=== PATIENT | female | born 1975 | race Caucasian/White ===

== ENCOUNTER 2021-12-31 10:56 | Emergency (ER) | payer SELFPAY ==
[2021-12-31 10:57] VITALS: BP 135/67; PULSE 80; RESP 16; TEMP 36.2; O2SAT 96; BMI 22.8
[2021-12-31 11:06] VITALS: BP 135/67; PULSE 80; RESP 16; TEMP 36.2; O2SAT 96
--- NOTE | 2021-12-31 11:15 | EDS_ITS ---
HPI HPI - Female History of Present Illness Chief Complaint: Female C/O Informant: patient Narrative Narrative: 46-year-old female presenting to the emergency department for vaginal discharge. Patient states that she is from [place]. Prior to coming to [place] to visit family she saw her doctor and was diagnosed with bacterial vaginosis. She was started on 7 days of metronidazole. She states that there is still a discharge. She describes it as white and thick. She states that sometimes it smells sweet and sometimes it smells fishy. She states that they also checked her for gonorrhea and chlamydia and states that she called the office to make sure that those were negative but they stated that they couldn't pull her chart but that they would've called her if it was positive. She denies any fevers. She has had prior hysterectomy. [facility] Medical History Harding esophagus Iron deficiency Mitral valve prolapse Home Medications clindamycin HCl [Cleocin HCl] 300 mg PO BID 7 Days #14 capsule 12/31/21 [Rx Last Taken Unknown] fluconazole [Diflucan] 150 mg PO Q3D #2 tab 12/31/21 [Rx Last Taken Unknown] pantoprazole 40 mg PO DAILY 12/31/21 [History Last Taken Unknown] Allergy/AdvReac Type Severity Reaction Status Date / Time acetaminophen [From Percocet] Allergy Rash Verified 12/31/21 11:00 oxycodone [From Percocet] Allergy Rash Verified 12/31/21 11:00 Surgical History History of hysterectomy Social History Smoking Status: Current every day smoker tobacco type: cigarettes ROS ROS ED Constitutional Constitutional ED: Denies chills, fever(s) or weight loss Eyes Eyes: Denies change in vision or diplopia ENT ENT ED: Denies ear pain, rhinorrhea or sore throat Cardiovascular Cardiovascular: Denies chest pain, orthopnea, palpitations or racing heartbeat Respiratory/Chest Respiratory/Chest: Denies cough, dyspnea or orthopnea Gastrointestinal Gastrointestinal: Denies abdominal pain, diarrhea, nausea or vomiting Genitourinary Genitourinary ED: Reports other Details: Vaginal discharge ; Denies dysuria, hematuria or urinary frequency Musculoskeletal Musculoskeletal: Denies arthralgias or myalgias Integumentary Denies abscess or rash Neurologic Neurologic: Denies headache(s) or weakness Psychiatric Psychiatric: Denies anxiety, depression, suicidal ideation or suicidal thoughts Endocrine Endocrinology: Denies polydipsia, polyphagia or polyuria Allergic/Immunologic Allergic/Immunologic ED: Denies mouth swelling, tongue swelling or urticaria EXAM Physical Exam Const Vital Signs: 12/31/21 10:57 12/31/21 11:06 Temperature 97.2 F L 97.2 F L Temperature Source Temporal Temporal Pulse Rate 80 80 Respiratory Rate 16 16 Blood Pressure 135/67 H 135/67 H Blood Pressure Mean 89 89 Pulse Ox 96 96 Oxygen Delivery Method Room Air Room Air Positive well nourished and well developed General Appearance ED: well developed HEENT Reports normocephalic, head/scalp atraumatic, TM's clear and moist mucous membranes Negative for trauma Tympanic Membrane ED: Yes TM's clear Eyes PERRL and EOMs intact bilaterally Neck no lymphadenopathy, supple and no JVD Resp normal respiratory effort and clear to auscultation bilaterally Cardio regular rate, regular rhythm and no murmurs GI normal to inspection, nondistended, normoactive bowel sounds and non-tender Palpation: soft Narrative: External exam appears normal. Speculum exam reveals white frothy discharge. No lesions or blood noted. Back/Spine no CVA tenderness and normal ROM Extremity normal to inspection General Extremety ED: Negative for edema General Extremity: Negative for edema Neuro oriented x3 and CN's II-XII intact bilaterally Sensorium / Orientation: alert Motor Exam: strength 5/5 throughout Psych mental status grossly normal Mood & Affect: Negative for depressed or tearful Skin no rashes or lesions noted and no wounds MDM MDM MDM Narrative Medical decision making narrative: I will start the patient on a 7-day clindamycin course as she just finished a 7-day metronidazole course. I will also write for Diflucan she is worried about yeast infection. Advised the patient to follow-up with gynecology when she returns home Discharge Plan Triage Chief Complaint: Female C/O ED Provider: Elias Beckham Dx/Rx/DC Orders Clinical Impression: Bacterial vaginosis Instructions: Bacterial Vaginosis Prescriptions: New clindamycin HCl [Cleocin HCl] 300 MG capsule 300 mg PO BID 7 Days Qty: 14 RF: 0 fluconazole [Diflucan] 150 mg tablet 150 mg PO Q3D Qty: 2 RF: 0 No Action pantoprazole 40 mg Tablet,Delayed Release (Dr/Ec) 40 mg PO DAILY RF: 0 Activity Restrictions/Additional Instructions: Please follow-up with gynecology or your primary care physician when you return home. Disposition Disposition: Home, Self Care
== END 2021-12-31 23:59 | disposition home or self-care (01) ==
LOC: ED 11:35
PROVIDERS: Emergency Provider Emergency Medicine; Visit Provider Emergency Medicine
DX: N76.0 Acute vaginitis (principal); F17.210 Nicotine dependence, cigarettes, uncomplicated; B96.89 Other specified bacterial agents as the cause of diseases classified elsewhere
CPT/HCPCS: 99282

== ENCOUNTER 2023-08-31 09:24 | Emergency (ER) | payer SELFPAY ==
[2023-08-31 09:26] VITALS: BP 128/62; PULSE 87; RESP 14; TEMP 36.7; O2SAT 98; BMI 25.9
--- NOTE | 2023-08-31 09:40 | ED.VIS.GI ---
HPI HPI - GI History of Present Illness Chief Complaint: Abd Pain Informant: patient Narrative Narrative: Finding history waxing waning epigastric discomfort. No nausea or vomiting. States had increasing stresses and not had healthy diet recently. States food does not worsening symptoms. Denies diarrhea. Denies black or tarry stools. History of Harding's esophagus diagnosed in [place] she is followed up locally here Dr. Mckay, endoscopy in the last year with no signs of Harding's per patient. She is continued on pantoprazole. Hysterectomy in the past. She states she had an alcohol binge from stress recently however does not drink alcohol daily. Denies history of pancreatitis. In addition concerns for increasing malodorous vaginal discharge for the last couple months. This past December saw her PCP, treated for BV with Flagyl. She states typically Flagyl does not help. She has not been sexually active since December. Concern for vaginal discharge leading to her abdominal symptoms. No urinary symptoms. [facility] Medical History Harding esophagus Iron deficiency Mitral valve prolapse Home Medications fluconazole 150 mg tablet (Diflucan) 150 mg PO Q3D 2 doses #2 tabs 12/31/21 [Rx Last Taken Unknown] pantoprazole 40 mg tablet,delayed release 40 mg PO DAILY 12/31/21 [History Last Taken Unknown] clindamycin HCl 300 mg capsule 300 mg PO BID #13 caps 08/31/23 [Rx Last Taken Unknown] sucralfate 1 gram tablet (Carafate) 1 g PO .qid #60 tabs 08/31/23 [Rx Last Taken Unknown] Allergy/AdvReac Type Severity Reaction Status Date / Time acetaminophen [From Percocet] Allergy Rash Verified 08/31/23 09:25 oxycodone [From Percocet] Allergy Rash Verified 08/31/23 09:25 Surgical History History of hysterectomy Social History Smoking Status: Current every day smoker tobacco type: cigarettes ROS ROS ED Constitutional Constitutional ED: Denies chills, fever(s) or sweats Eyes Eyes: Denies change in vision ENT ENT ED: Denies dysphagia or sore throat Cardiovascular Cardiovascular: Denies chest pain, leg edema, palpitations or racing heartbeat Respiratory/Chest Respiratory/Chest: Denies cough, dyspnea or dyspnea on exertion Gastrointestinal Gastrointestinal: Reports abdominal pain; Denies diarrhea, nausea or vomiting Genitourinary Genitourinary ED: Reports other Details: Malodorous vaginal discharge ; Denies dysuria, hematuria or urinary frequency Musculoskeletal Musculoskeletal: Denies back pain, extremity pain or neck pain Integumentary Denies rash or wounds Neurologic Neurologic: Denies headache(s), paresthesias or weakness EXAM Physical Exam Const Vital Signs: 08/31/23 09:26 08/31/23 11:07 Temperature 98.1 F 98.6 F Temperature Source Temporal Pulse Rate 87 64 Respiratory Rate 14 14 Blood Pressure 128/62 H 134/76 H Blood Pressure Mean 84 Pulse Ox 98 99 Oxygen Delivery Method Room Air Positive well nourished and well developed General Appearance ED: well developed and NAD HEENT Reports moist mucous membranes normocephalic and atraumatic Eyes PERRL, EOMs intact bilaterally and conjunctivae normal General Eye ED: Yes normal appearance of both eyes Neck no lymphadenopathy and supple General: Negative for tenderness Chest Wall Chest: Negative for tenderness Resp normal respiratory effort and normal air movement Effort and Inspection: symmetric chest movement; Negative for respiratory distress Cardio regular rate, regular rhythm and no murmurs Peripheral Pulses: pulses 2+ throughout GI normal to inspection, nondistended, normoactive bowel sounds GI Narrative: Mild epigastric tenderness. No guarding or rebound. Negative Garcia's or McBurney's tenderness. Palpation: Negative for guarding or rebound tenderness present Narrative: Pelvic exam with nursing present. Normal external genitalia. Speculum exam, absent cervix, white milky discharge noted. Back/Spine no CVA tenderness and no thoracic nor lumbar tenderness Extremity normal to inspection General Extremety ED: Negative for edema or tenderness General Extremity: Negative for edema Neuro oriented x3 and no sensory deficits noted Sensorium / Orientation: awake and alert Skin no rashes or lesions noted and no wounds MDM MDM MDM Narrative Medical decision making narrative: Interventions / MDM: Differential diagnosis: Gastritis, bacterial vaginosis Diagnosis considered but do not suspect: No clinical cholecystitis My EKG interpretation: N/A Imaging independently reviewed and interpreted by myself: N/A External documents reviewed: N/A Test considered but not ordered:N/A ED course: Nontoxic epigastric pain with increasing stress. She has no melena concern for active bleeding ulcer. Abdominal labs were ordered, GI cocktail. Pelvic exam performed with nursing due to her discharge, she has an absent cervix, not likely concerns for Dung-Phani Nicholas syndrome. Wet prep today returning negative for trichomonas. With her discharge likely BV. GC chlamydia pending. symptomatically improved with GI cocktail. Carafate added to her regimen. She reports no improvement with Flagyl in the past, clindamycin was used previously. This was ordered for 7 days for treatment. Of note reported transferring back to [place] for her job and does have a human services instructor there to follow-up with. All questions were answered. Re-evaluation: stable Disposition discussed with patient/family/significant other: Patient Case discussed with consulting clinician: N/A This note was generated with [employer] dictation software. It may contain incorrect words, spelling, and punctuation that were not noted in checking the note before signing. Lab Data Attestation: I reviewed the patient's lab results. Labs: Laboratory Results - last 24 hr 08/31/23 08/31/23 09:47 10:05 WBC 7.6 RBC 4.68 Hgb 14.9 Hct 44.3 MCV 94.7 MCH 31.8 MCHC 33.6 RDW Std Deviation 43.8 RDW Coeff of Shelbie 12.8 Plt Count 194 MPV 10.7 Immature Gran % (Auto) 0.100 Neut % (Auto) 55.7 Lymph % (Auto) 34.3 [place] % (Auto) 6.9 Eos % (Auto) 2.5 Baso % (Auto) 0.5 Absolute Neuts (auto) 4.2 Absolute Lymphs (auto) 2.59 Nucleated RBC % 0 Sodium 138 Potassium 4.1 Chloride 106 Carbon Dioxide 28.0 Anion Gap 4 L BUN 11 Creatinine 0.74 Estim Creat Clear Calc 95.05 Est GFR (MDRD) Af Amer 106 Est GFR (MDRD) Non-Af 88 BUN/Creatinine Ratio 14.8 Glucose 88 Calcium 9.4 Total Bilirubin 0.40 AST 14 L ALT 25 Alkaline Phosphatase 76 Total Protein 7.6 Albumin 3.8 Globulin 3.8 Albumin/Globulin Ratio 1.0 Lipase 22 Chlamydia DNA (JAIDA) Cancelled N.gonorrhoeae DNA (JAIDA) Cancelled Discharge Plan Triage Chief Complaint: Abd Pain ED Provider: Jameson Chanel Dx/Rx/DC Orders Clinical Impression: Bacterial vaginosis, Gastritis Instructions: Bacterial Vaginosis, ED Gastritis (Adult) Prescriptions: New clindamycin HCl 300 mg capsule 300 mg PO BID Qty: 13 0RF sucralfate [Carafate] 1 gram tablet 1 g PO .qid Qty: 60 0RF Discontinued clindamycin HCl [Cleocin HCl] 300 MG capsule 300 mg PO BID 7 Days Qty: 14 0RF No Action pantoprazole 40 mg Tablet,Delayed Release (Dr/Ec) 40 mg PO DAILY fluconazole [Diflucan] 150 mg tablet 150 mg PO Q3D Qty: 2 0RF Rx Instructions: may repeat second dose 72 hrs after first dose if symptoms persist Primary Care Provider: IRAIDA YORK Referrals: IRAIDA YORK [Other] Activity Restrictions/Additional Instructions: Abdominal blood work was normal. GC and chlamydia pending. Take medications as prescribed. Plan on follow-up with your human services instructor and your primary doctor. Disposition Disposition: Home, Self Care Discharge Date/Time: 08/31/23 11:24
[2023-08-31] MEDS: Mag Hydrox/Al Hydrox/Simeth 30 ML UDC PO (09:52)
[2023-08-31 09:53] LABS: Absolute Lymphocyte Count 2.59 X10^3/uL (0.83-4.51); Absolute Neutrophil Count 4.2 X10^3/uL (2.0-7.7); Basophil# 0.04 X10^3/uL; Basophil% 0.5 % (0-1); Eosinophil# 0.19 X10^3/uL; Eosinophils% 2.5 % (0-5); Hematocrit 44.3 % (37-47); Hemoglobin 14.9 g/dL (12.0-15.0); Lymphocyte # 2.59 X10^3/ul (0.83-4.51); Lymphocyte % 34.3 % (19-41); Mean Corp Hgb Conc 33.6 g/dL (32-36); Mean Corpuscular Hgb 31.8 pg (27.0-32.0); Mean Corpuscular Volume 94.7 fL (81-99); Mean Platelet Vol. 10.7 fl (6.2-12.0); Monocyte# 0.52 X10^3/uL; Monocyte% 6.9 % (0-10); NRBC Flagged by Analyzer 0 % (0-5); Neutrophil % 55.7 % (47-70); Platelet Count 194 K/mm3 (150-450); RBC Distribution Width CV 12.8 % (11.6-14.6); RBC Distribution Width SD 43.8 fl (35.1-43.9); Red Blood Count 4.68 M/mm3 (4.2-5.4); White Blood Count 7.6 K/mm3 (4.4-11.0)
[2023-08-31 10:09] LABS: AST(SGOT) 14 U/L (15-37); Alanine Aminotransfer ALT/SGPT 25 U/L (13-56); Albumin, Serum 3.8 g/dL (3.2-5.0); Alkaline Phosphatase 76 U/L (45-117); Anion Gap 4 (5-15); BUN 11 mg/dL (7-18); BUN/Creat Ratio 14.8 RATIO (10-20); Calcium,Total 9.4 mg/dL (8.5-10.1); Chloride 106 mmol/L (98-107); Creatinine, Serum 0.74 mg/dL (0.55-1.02); EST Glomerular Filtration Rate 88 mL/min (>60); Est Glom Filt Rate - Afr Amer 106 mL/min (>60); Estimated Creatinine Clearance 95.05 ml/min; Globulin 3.8 g/dL (2.2-4.2); Glucose 88 mg/dL (74-106); Lipase 22 U/L (13-75); Potassium 4.1 mmol/L (3.5-5.1); Protein, Total 7.6 g/dL (6.4-8.2); Sodium Level 138 mmol/L (136-145)
[2023-08-31 11:07] VITALS: BP 134/76; PULSE 64; RESP 14; TEMP 37; O2SAT 99
[2023-08-31] MEDS: Clindamycin HCl 150 MG Capsule 300 MG PO (11:21)
== END 2023-08-31 11:24 | disposition home or self-care (01) ==
PROVIDERS: Emergency Provider Emergency Medicine; Visit Provider Emergency Medicine
DX: N76.0 Acute vaginitis (principal); K29.70 Gastritis, unspecified, without bleeding; F17.210 Nicotine dependence, cigarettes, uncomplicated
CPT/HCPCS: 80053; 83690; 85025; 87210; 87491; 87591; 99284; A4216